=== PATIENT | male | born 1990 ===

== ENCOUNTER 2024-01-26 20:28 | Emergency (ER) | payer OTHER ==
[2024-01-26 20:38] VITALS: BP 141/73; RESP 18; TEMP 98; BMI 30.4
[2024-01-26] MEDS ORDERED: ACETAMINOPHEN INJECTION 100 ML IVPB ONE (22:21)
[2024-01-26] MEDS: ACETAMINOPHEN 1000 MG/100 ML BAG IVPB ONE (22:30)
[2024-01-26 22:37] LABS: BASO % 0.4 % (0-2.0); EOS % 0.1 % (0-4.5); HEMATOCRIT 41.8 % (35.4-49); HEMOGLOBIN 14.1 GM/dL (11.7-16.9); LYMPH % 22.9 % (8-40); MCH 29.8 pg (25.7-33.7); MCHC 33.6 g/dl (32.0-35.9); MEAN CELL VOLUME 88.7 fl (80-96); MEAN PLT VOLUME 7.8 fl (7.5-11.1); MONO % 2.3 % (3.8-10.2); NEUT % 74.3 % (42.8-82.8); PLATELET COUNT 284 10^3/uL (134-434); RBC 4.72 M/mm3 (4.00-5.60); RDW 13.2 % (11.9-15.9); WHITE BLOOD COUNT 6.9 K/mm3 (4.0-10.0)
[2024-01-26 22:44] LABS: INR 1.11 (0.83-1.09); PROTHROMBIN TIME (PATIENT) 12.9 SEC (9.7-13.0)
[2024-01-26] MEDS: ACETAMINOPHEN 500 MG TABLET (FP) PO ONE (23:06)
[2024-01-26 23:22] LABS: POTASSIUM 4.4 mmol/L (3.5-5.1)
[2024-01-26 23:23] LABS: CALCIUM 10.1 mg/dL (8.5-10.1)
[2024-01-26 23:24] LABS: ALBUMIN 4.2 g/dl (3.4-5.0); BLOOD UREA NITROGEN 13.4 mg/dL (7-18)
[2024-01-26 23:28] LABS: BILIRUBIN,TOTAL 0.5 mg/dL (0.2-1)
[2024-01-26 23:29] LABS: TOT PROT 8.6 g/dl (6.4-8.2)
[2024-01-26 23:48] VITALS: PULSE 84
[2024-01-26] MEDS ORDERED: KETOROLAC TROMETHAMINE 15 MG/ML VIAL ONE (23:54)
[2024-01-27] MEDS: KETOROLAC TROMETHAMINE 15 MG/ML VIAL IVPUSH ONE (00:15)
== END 2024-01-27 00:36 | disposition home or self-care (01) ==
LOC: JER 20:28
PROC: 3E030NZ Introduction of Analgesics, Hypnotics, Sedatives into Peripheral Vein, Open Approach (ICD-10-PCS; principal; 2024-01-26)
PROC: 3E030GC Introduction of Other Therapeutic Substance into Peripheral Vein, Open Approach (ICD-10-PCS; 2024-01-27)
DX: R00.2 Palpitations (principal); R07.9 Chest pain, unspecified
CPT/HCPCS: 36415; 71046-TC-FY; 80053; 83735; 84100; 84443; 84484; 85025; 85610; 85730; 93005; 93010; 99285-25; J0131